=== PATIENT | male | born 1995 | race American Indian/Alaskan Native ===

== ENCOUNTER 2016-10-25 10:40 | Emergency (ER) | payer MEDICAID ==
[2016-10-25 11:03] VITALS: BP 116/71
--- NOTE | 2016-10-25 11:04 | Emergency Department Report ---
Entered by TIFFANIE MALIK, acting as scribe for URIEL BRASHER NP. Chief Complaint: Chest Pain Stated Complaint: CP/ANIBAL/FEEL LIKE SOMETHING IN THROAT Time Seen by Provider: 10/25/16 10:58 - HPI History of Present Illness: 20 y/o male presents c/o tight 6/10 chest pain on the right side that began after he woke up this morning. Sx include SOB, but pt denies fever, cough or nausea. PT also feels some discomfort in his throat that did not approve with drinking water pt states he has a hx of anxiety pt states his mother has a hx of htn - ROS Review of Systems: +chest pain +SOB -Nausea -cough -fever - anxiety - Exam Vital Signs: Vital Signs 10/25/16 10:58 Temperature 98.1 F Pulse Rate 70 Respiratory 15 Rate Blood Pressure 116/71 O2 Sat by Pulse 98 Oximetry Physical Exam: PT looks well, non toxic. no acute resp distress lungs cta MSE screening note: Focused history and physical exam performed. Due to findings the following was ordered: ekg, lab, xr ED Disposition for MSE Condition: Stable This documentation as recorded by the scribe,TIFFANIE MALIK,accurately reflects the service I personally performed and the decisions made by me,URIEL BRASHER , [employer]ATOR.
[2016-10-25 11:35] LABS: Anion Gap 16 mmol/L; Blood Urea Nitrogen 8 mg/dL (9-20); Calcium 8.7 mg/dL (8.4-10.2); Carbon Dioxide 26 mmol/L (22-30); Chloride 102.6 mmol/L (98-107); Glucose 71 mg/dL (75-100); Potassium 3.6 mmol/L (3.6-5.0); Sodium 141 mmol/L (137-145)
[2016-10-25 11:50] LABS: Hematocrit 42.4 % (35.5-45.6); Hemoglobin 14.6 gm/dl (11.8-15.2); Mean Corpuscular HGB Conc 35 % (32-34); Mean Corpuscular Hemoglobin 29 pg (28-32); Mean Corpuscular Volume 84 fl (84-94); Platelet Count 165 K/mm3 (140-440); Red Blood Count 5.07 M/mm3 (3.65-5.03); Red Cell Distribution Width 14.9 % (13.2-15.2); White Blood Count 8.2 K/mm3 (4.5-11.0)
--- NOTE | 2016-10-25 11:56 | XRay Report ---
ROUTINE CHEST, TWO VIEWS: HISTORY: chest pain, cough. The trachea, heart, mediastinal contour, lung hicks and bony thorax are unremarkable. IMPRESSION: Unremarkable chest x-ray. No change since 05/10/14.
[2016-10-25 12:44] LABS: Basophils % (Manual) 0 % (0.0-1.8); Blastocytes % (Manual) 0 %; Eosinophils % (Manual) 0 % (0.0-4.3)
[2016-10-25 12:45] LABS: Diff Status Complete; Platelet Estimate Cons; RBC Morphology Normal
[2016-10-25] MEDS ORDERED: MOTRIN PO ONE (12:46)
--- NOTE | 2016-10-25 12:49 | Emergency Department Report ---
HPI - General Chief Complaint: Chest Pain Time Seen by Provider: 10/25/16 10:58 - HPI HPI: 20-year-old -[place] male comes in with complaint of right side chest pain with shortness of breath since this morning. Patient also complaining of cough times this morning. He denies any nausea no vomiting. Medical history only anxiety and sleep issues as well as a history of bronchitis he reports. Currently takes meds are Prozac and Seroquel. Primary care provider is [facility] in [place]. Seen there about 2-3 weeks ago. 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 He reports that the pain has gotten a little bit better. He denies any coughing anymore. ED Past Medical Hx - Past Medical History Hx Psychiatric Treatment: Yes (ANXIETY / DEPRESSION) Additional medical history: BRONCHITIS - Surgical History Past Surgical History?: No - Social History Smoking Status: Light Tobacco Smoker Substance Use Type: None - Medications Home Medications: Home Medications Medication Instructions Recorded Confirmed Last Taken Type Cyclobenzaprine HCl [Flexeril 5 MG 1 tab PO Q8HR PRN #21 tab 09/12/15 Unknown Rx TAB] HYDROcodone/APAP 5-325 [[place] 1 each PO Q6HR PRN #12 tablet 09/12/15 Unknown Rx 5/325] Ibuprofen [Motrin 800 MG tab] 1 tab PO Q8HR PRN #30 tablet 09/12/15 Unknown Rx Ibuprofen [Motrin 800 MG tab] 800 mg PO Q8HR #30 tablet 10/25/16 Unknown Rx ED Review of Systems ROS: Stated complaint: CP/ANIBAL/FEEL LIKE SOMETHING IN THROAT Other details as noted in HPI Physical Exam - Physical Exam Vital Signs: Vital Signs 10/25/16 10:58 Temperature 98.1 F Pulse Rate 70 Respiratory 15 Rate Blood Pressure 116/71 O2 Sat by Pulse 98 Oximetry Physical Exam: GENERAL: Alert and oriented x3, no apparent distress, Normal Gait, atraumatic. HEAD: Head is normocephalic and a-traumatic. EYES: Extra ocular muscles are intact. Pupils are equal, round, and reactive to light and accommodation. EARS: symetrical, atraumatic, non tender, ear canal clear and moderate cerumen, tympanic membrance non inflamed. gross auditory nml bilaterally. NOSE: Nose symetrical, Nontender,Nares appeared normal. MOUTH:Mouth is well hydrated and without lesions. Tonsils nonerythematous or swollen, Uvula midline, Tongue not elevated. Mucous membranes are moist. Posterior pharynx clear, no exudate or lesions. Patent airways. NECK: Supple. Non edematous, No carotid bruits. No lymphadenopathy or thyromegaly. LUNGS: Symetrical with respiration, No wheezing, no rales or crackles, CTAB. Tenderness to the chest wall of the right side. HEART: S1, S2 present, regular rate and rhythm without murmur, no rubs, no gallops. ABDOMEN: No organomegaly was noted,Positive bowel sounds, soft, and non- distended. . Nontender to palpation on all Quadrants, NO CVA tenderness. EXTREMITIES/MUSCULOSKELETAL: No cyanosis, clubbing, rash, lesions or edema. Full ROM bilaterally. UE/LE Pulses 2+ bilaterally. LE and UE 5+ strength bilaterally pain elicited with range of motion movement of the right arm to the pectoralis of the right side. NEUROLOGIC: No focal Deficit, Cranial nerves II through XII are grossly intact. No loss of sensation, No facial droop, Negative rhomberg. PSYCHIATRIC: Mood is congruent with affect, denies suicidal or homicidal ideations. SKIN: Warm and dry, No lesions, No ulceration or induration present ED Course Vital Signs 10/25/16 10:58 Temperature 98.1 F Pulse Rate 70 Respiratory 15 Rate Blood Pressure 116/71 O2 Sat by Pulse 98 Oximetry ED Medical Decision Making - Lab Data Result diagrams: 10/25/16 11:07 10/25/16 11:07 - Radiology Data Radiology results: report reviewed, image reviewed ROUTINE CHEST, TWO VIEWS: HISTORY: chest pain, cough. The trachea, heart, mediastinal contour, lung hicks and bony thorax are unremarkable. IMPRESSION: Unremarkable chest x-ray. No change since 05/10/14. Transcribed By: TTR Dictated By: DAVID EVANS JR, MD Electronically Authenticated By: DAVID EVANS JR, MD Signed Date/Time: 10/25/16 8691 - Medical Decision Making Since I would've with his provider fast track. Review of x-ray was within normal limits. EKG was done which showed normal sinus rhythm. Lungs are clear on examination with right side chest wall tenderness. Labs are within normal limits. Negative troponin. We'll give patient ibuprofen 800 mg by mouth now. We'll discharge patient home. Critical care attestation.: If time is entered above; I have spent that time in minutes in the direct care of this critically ill patient, excluding procedure time. ED Disposition Clinical Impression: Chest wall tenderness Disposition: DISCHARGED TO HOME OR SELFCARE Is pt being admited?: No Does the pt Need Aspirin: No Condition: Stable Instructions: Chest Pain (ED) Additional Instructions: Please take ibuprofen as prescribed for pain. Follow up with her primary care provider. Prescriptions: Ibuprofen [Motrin 800 MG tab] 800 mg PO Q8HR #30 tablet Referrals: PRIMARY CARE, [Primary Care Provider] - 3-5 Days [facility] [Outside] - 3-5 Days Forms: Work/School Release Form(ED)
== END 2016-10-25 13:06 | disposition home or self-care (01) ==
LOC: ED 10:40
DX: R07.89 Other chest pain (principal); F41.9 Anxiety disorder, unspecified; F32.9 Major depressive disorder, single episode, unspecified; Z72.0 Tobacco use
CPT/HCPCS: 36415; 71020; 80048; 84484; 85007; 85025; 93005; 93010

== ENCOUNTER 2017-05-24 16:21 | Outpatient (CLI) | payer OTHER ==
--- NOTE | 2017-05-25 07:49 | XRay Report ---
Lumbar spine 3 views: History: Low back pain. Findings: Normal height of vertebral bodies and intervertebral disc. Normal articular surfaces. No fracture. No soft tissue calcification. Impression: No bony or articular abnormality lumbar spine. spine.
--- NOTE | 2017-05-25 07:51 | XRay Report ---
Right knee 2 views: History: Knee pain. Findings: No bony or articular abnormality. No fracture dislocation or joint effusion. Next Impression: Essentially negative right knee.
== END 2017-05-24 16:22 | disposition home or self-care (01) ==
LOC: XRAY 16:21
PROVIDERS: ATTEND Rehabilitation Practitioner
DX: M54.5 Low back pain (principal); M25.561 Pain in right knee
CPT/HCPCS: 72100

== ENCOUNTER 2017-09-30 11:21 | Emergency (ER) | payer SELFPAY ==
[2017-09-30 11:30] VITALS: BP 132/78
[2017-09-30 11:56] LABS: Bilirubin,Urine NEG (Negative); Blood,Urine NEG (Negative); Color,Urine Yellow (Yellow); Protein,Urine <15 mg/dL mg/dL (Negative); Urobilinogen,Urine < 2.0 mg/dL (<2.0); WBC,Urine < 1.0 /HPF (0.0-6.0)
--- NOTE | 2017-09-30 12:55 | Emergency Department Report ---
ED Male HPI - General Chief complaint: Urogenital-Male Stated complaint: TESTICAL PAIN Time Seen by Provider: 09/30/17 11:47 Source: patient Mode of arrival: Ambulatory Limitations: No Limitations - History of Present Illness Initial comments: This is a 21 y.o. male that presents with penile discharge for 4 days and active hemorrhoids flare. Patient admits to having unprotected intercourse 2 weeks ago. History of hemorrhoids and currently have poor diet. He is using OTC medication with no improvement of symptoms. Reports difficulty sitting and pain is worse with movement and touch. Denies frequency, urgency, pelvic pain, and low back pain. MD Complaint: penile discharge (white thin discharge) -: days(s) (4) Location: penis Radiation: none Severity: moderate Severity scale (0 -10): 10 (hemorroids) Quality: aching Consistency: constant Improves with: none Worsens with: palpation, movement new sexual partner discharge. denies: swelling, mass, rash, urinary retention, blood in urine, dysuria, fever, nausea/vomiting, incontinence - Related Data Sexually active: Yes Previous Rx's Medication Instructions Recorded Last Taken Type Cyclobenzaprine HCl [Flexeril 5 MG 1 tab PO Q8HR PRN #21 tab 09/12/15 Unknown Rx TAB] HYDROcodone/APAP 5-325 [[place] 1 each PO Q6HR PRN #12 tablet 09/12/15 Unknown Rx 5/325] Ibuprofen [Motrin 800 MG tab] 1 tab PO Q8HR PRN #30 tablet 09/12/15 Unknown Rx Ibuprofen [Motrin 800 MG tab] 800 mg PO Q8HR #30 tablet 10/25/16 Unknown Rx Doxycycline Monohydrate 100 mg PO BID 5 Days #10 tablet 09/30/17 Unknown Rx Hydrocortisone [Anucort-HC SUPPOS] 25 mg RC BID 7 Days #14 supp.rect 09/30/17 Unknown Rx Allergies Allergy/AdvReac Type Severity Reaction Status Date / Time No Known Allergies Allergy Verified 10/25/16 11:03 ED Review of Systems ROS: Stated complaint: TESTICAL PAIN Other details as noted in HPI Constitutional: denies: chills, fever Respiratory: denies: cough, shortness of breath, wheezing Cardiovascular: denies: chest pain, palpitations Endocrine: no symptoms reported Gastrointestinal: constipation (constipated last week), other (active hemorroid flare). denies: abdominal pain, nausea, vomiting, diarrhea Genitourinary: discharge (think white discharge). denies: urgency, dysuria, frequency, hematuria, testicular pain, testicular mass Neurological: denies: headache, weakness, paresthesias Psychiatric: denies: anxiety, depression ED Past Medical Hx - Past Medical History Previous Medical History?: Yes Hx Psychiatric Treatment: Yes (ANXIETY / DEPRESSION) Additional medical history: BRONCHITIS - Surgical History Past Surgical History?: No - Social History Smoking Status: Former Smoker Substance Use Type: None - Medications Home Medications: Home Medications Medication Instructions Recorded Confirmed Last Taken Type Cyclobenzaprine HCl [Flexeril 5 MG 1 tab PO Q8HR PRN #21 tab 09/12/15 Unknown Rx TAB] HYDROcodone/APAP 5-325 [[place] 1 each PO Q6HR PRN #12 tablet 09/12/15 Unknown Rx 5/325] Ibuprofen [Motrin 800 MG tab] 1 tab PO Q8HR PRN #30 tablet 09/12/15 Unknown Rx Ibuprofen [Motrin 800 MG tab] 800 mg PO Q8HR #30 tablet 10/25/16 Unknown Rx Doxycycline Monohydrate 100 mg PO BID 5 Days #10 tablet 09/30/17 Unknown Rx Hydrocortisone [Anucort-HC SUPPOS] 25 mg RC BID 7 Days #14 supp.rect 09/30/17 Unknown Rx ED Physical Exam - General Limitations: No Limitations General appearance: alert, in no apparent distress - Respiratory Respiratory exam: Present: normal lung sounds bilaterally. Absent: respiratory distress, wheezes, rales, rhonchi - Cardiovascular Cardiovascular Exam: Present: regular rate, normal rhythm, normal heart sounds. Absent: systolic murmur, diastolic murmur, rubs, gallop - GI/Abdominal GI/Abdominal exam: Present: soft, normal bowel sounds. Absent: distended, tenderness, guarding, rebound, rigid, organomegaly, mass - Rectal Rectal exam: Present: hemorrhoids (external and internal), tenderness, normal prostate. Absent: mass, prostate tenderness, prostate enlargement - exam: Present: urethral discharge (clear, thin), circumcision. Absent: testicular tenderness, scrotal swelling, vertical testicular lie External exam: Present: normal external exam - Neurological Exam Neurological exam: Present: alert, oriented X3 - Psychiatric Psychiatric exam: Present: normal affect, normal mood - Skin Skin exam: Present: warm, dry, intact, normal color. Absent: rash ED Course Vital Signs 09/30/17 11:24 Temperature 98.2 F Pulse Rate 71 Respiratory 16 Rate Blood Pressure 132/78 O2 Sat by Pulse 98 Oximetry ED Medical Decision Making - Medical Decision Making This is a 21 y.o. male presents with penile discharge for 4 days and active hemorrhoids flare. Patient was examined by me. Obtained UA, normal. Discussed empirically treating for STD exposure. Discussed plans to empirically treat for STI exposure and follow up for screening with health department or [facility]. Physical assessment findings of external and internal hemorrhoids. Patient agree to plan. No further questions asked. Given rocephin 250 mg IM, azithromycin 1 g po once in ER. Discharged home in stable condition. Start doxycycline 100 mg po bid x 5 days. Discussed prevention options. F/U with PCP or Health Department. Critical care attestation.: If time is entered above; I have spent that time in minutes in the direct care of this critically ill patient, excluding procedure time. ED Disposition Clinical Impression: Exposure to STD, Acute hemorrhoid Disposition: - TO HOME OR SELFCARE Is pt being admited?: No Does the pt Need Aspirin: No Condition: Stable Instructions: Hemorrhoids (ED), Sexually Transmitted Diseases (ED), Safe Sex ( ED) Additional Instructions: Avoid drinking alcohol while taking antibiotic and for 24 hours after completion. Continue safe sexual intercourse. Start taking a stool softener daily and increase water intake to prevent constipation and repeated hemorrhoids flare. Follow up with Primary Care Provider or health department for STD screening. Prescriptions: Doxycycline Monohydrate 100 mg PO BID 5 Days #10 tablet Hydrocortisone [Anucort-HC SUPPOS] 25 mg RC BID 7 Days #14 supp.rect Referrals: [facility] [Outside] - 3-5 Days [facility] [Outside] - 3-5 Days [facility] [Outside] - 3-5 Days Forms: Work/School Release Form(ED) Time of Disposition: 13:24 Print Language: UGANDAN
[2017-09-30] MEDS ORDERED: ZITHROMAX PO ONE (13:24)
[2017-09-30] MEDS ORDERED: ROCEPHIN IM ONE (13:25)
[2017-09-30] MEDS ORDERED: XYLOCAINE 1% MPF 5 mL INFILTRATI ONE (13:25)
== END 2017-09-30 14:01 | disposition home or self-care (01) ==
LOC: ED 11:21
DX: Z20.2 Contact with and (suspected) exposure to infections with a predominantly sexual mode of transmission (principal); F41.9 Anxiety disorder, unspecified; F32.9 Major depressive disorder, single episode, unspecified; J40 Bronchitis, not specified as acute or chronic; Z87.891 Personal history of nicotine dependence
CPT/HCPCS: 81001; 96372; 99283; J0696

== ENCOUNTER 2017-11-09 11:16 | Emergency (ER) | payer BC ==
[2017-11-09 11:31] VITALS: BP 122/69
[2017-11-09] MEDS ORDERED: TORADOL IM ONE (12:38)
--- NOTE | 2017-11-09 12:51 | Emergency Department Report ---
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 Patient stated he has been lifting and working pretty hard lately and yesterday felt a tweak in his left lower back. Patient states this pain is persisted and worsened over the last 24 hours. Patient states he has a hard time standing up straight because of this pain. Patient states the pain does not radiate around to the flank of the testicles. Patient denies any dysuria. - Related Data Previous Rx's Medication Instructions Recorded Last Taken Type Cyclobenzaprine HCl [Flexeril 5 MG 1 tab PO Q8HR PRN #21 tab 09/12/15 Unknown Rx TAB] HYDROcodone/APAP 5-325 [[place] 1 each PO Q6HR PRN #12 tablet 09/12/15 Unknown Rx 5/325] Ibuprofen [Motrin 800 MG tab] 1 tab PO Q8HR PRN #30 tablet 09/12/15 Unknown Rx Ibuprofen [Motrin 800 MG tab] 800 mg PO Q8HR #30 tablet 10/25/16 Unknown Rx Doxycycline Monohydrate 100 mg PO BID 5 Days #10 tablet 09/30/17 Unknown Rx Hydrocortisone [Anucort-HC SUPPOS] 25 mg RC BID 7 Days #14 supp.rect 09/30/17 Unknown Rx Ibuprofen [Motrin] 800 mg PO Q8HR PRN #20 tablet 11/09/17 Unknown Rx methOCARBAMOL [Robaxin TAB] 500 mg PO Q6H PRN #15 tablet 11/09/17 Unknown Rx traMADol [Ultram] 50 mg PO Q6HR PRN #10 tablet 11/09/17 Unknown Rx Allergies Allergy/AdvReac Type Severity Reaction Status Date / Time No Known Allergies Allergy Verified 10/25/16 11:03 ED Review of Systems ROS: Stated complaint: SIDE PAIN Other details as noted in HPI Comment: All other systems reviewed and negative ED Past Medical Hx - Past Medical History BRONCHITIS Family history: no significant family history ED Back Pain Physical Exam - Exam General: Vital signs noted. No distress. Alert and acting appropriately. Back/Abdomen: Yes Perilumbar Tenderness (patient's left paraspinal musculature is very tight and contracted at this time.), No Abdominal Tenderness, No Perithoracic Tenderness, No Sacroiliac Tenderness, No Flank Tenderness, No Straight Leg Raise Pain Neuro: Yes Normal Sensation, Yes Normal DTR's, Yes Normal Gait, No Motor Weakness ED Course Vital Signs 11/09/17 11:28 Temperature 97.7 F Pulse Rate 60 Respiratory 18 Rate Blood Pressure 122/69 O2 Sat by Pulse 99 Oximetry Critical care attestation.: If time is entered above; I have spent that time in minutes in the direct care of this critically ill patient, excluding procedure time. ED Disposition Clinical Impression: Lumbar strain, Muscle spasm Disposition: -01 TO HOME OR SELFCARE Is pt being admited?: No Does the pt Need Aspirin: No Condition: Stable Instructions: Muscle Strain (ED) Referrals: PRIMARY CARE, [Primary Care Provider] - 3-5 Days Forms: Work/School Release Form(ED)
== END 2017-11-09 13:10 | disposition home or self-care (01) ==
LOC: ED 11:16
DX: S39.012A Strain of muscle, fascia and tendon of lower back, initial encounter (principal); M62.830 Muscle spasm of back; X58.XXXA Exposure to other specified factors, initial encounter; Y93.89 Activity, other specified; Y92.89 Other specified places as the place of occurrence of the external cause; Y99.8 Other external cause status
CPT/HCPCS: 96372; 99282; J1885